=== PATIENT | male | born 2000 | race Caucasian/White ===

== ENCOUNTER 2020-06-20 21:24 | Emergency (ER) | payer BC ==
[2020-06-20] MEDS ORDERED: Lidocaine 1% 20 ML MDV INFILT ONE (21:25)
--- NOTE | 2020-06-20 23:19 | EDM.PDOC ---
ED HPI GENERAL MEDICAL PROBLEM - General Chief Complaint: Laceration Stated Complaint: CUT FINGER Time Seen by Provider: 06/20/20 22:30 Source of Information: Reports: Patient History Limitations: Reports: No Limitations - History of Present Illness INITIAL COMMENTS - FREE TEXT/NARRATIVE: cut right 5th finger while washes glass plate. has laceration to the lateral part of the 5th finger , moderate amount of bleeding noted Onset: Today Onset Date: 06/20/20 Duration: Getting Worse Location: Reports: Upper Extremity, Right Quality: Reports: Burning Severity: Mild Improves with: Reports: None Worsens with: Reports: None Associated Symptoms: Reports: No Other Symptoms - Related Data Allergies Allergy/AdvReac Type Severity Reaction Status Date / Time No Known Allergies Allergy Verified 06/20/20 22:06 Home Meds: Home Meds NK [No Known Home Meds] 06/20/20 [History] Past Medical History - Past Health History Medical/Surgical History: Denies Medical/Surgical History Social & Family History - Family History Family Medical History: No Pertinent Family History - Tobacco Use Tobacco Use Status *Q: Unknown Ever Used Tobacco - Caffeine Use Caffeine Use: Reports: None - Recreational Drug Use Recreational Drug Use: No ED ROS GENERAL - Review of Systems Review Of Systems: Comprehensive ROS is negative, except as noted in HPI. ED EXAM, SKIN/RASH Exam: See Below Exam Limited By: No Limitations General Appearance: Alert, WD/WN, No Apparent Distress Ears: Normal External Exam Nose: Normal Inspection Throat/Mouth: Normal Inspection, Normal Oropharynx Respiratory/Chest: No Respiratory Distress Back Exam: Normal Inspection, Full Range of Motion Extremities: Other (right 5th finger with c shaped laceration abotu 2 cm long , ragged with a flap , clean) ED SKIN PROCEDURES - Laceration/Wound Repair Right Upper Lateral Distal Digit - 5th (Baby) Appearance: Superficial, Irregular, Clean Distal NVT: Neuro & Vascular Intact Anesthetic Type: Digital Local Anesthesia - Lidocaine (Xylocaine): 1% Plain Local Anesthetic Volume: 5cc Skin Prep: Chlorhexidine (Hibiciens) Saline Irrigation (cc's): 5 Exploration/Debridement/Repair: Wound Explored Closed with: Sutures Lac/Wound length In cm: 2 Suture Size: 5-0 # of Sutures: 5 Suture Type: Simple, Other (ethilon) Sterile Dressing Applied: Nurse Tetanus Status Addressed: Yes Complications: No Complication Description: none Course - Vital Signs Last Recorded V/S: Last Vital Signs Temp 36.9 C 06/20/20 22:07 Pulse 74 06/20/20 22:07 Resp 16 06/20/20 22:07 BP 123/82 06/20/20 22:07 Pulse Ox 100 06/20/20 22:07 - Orders/Labs/Meds Meds: Medications Discontinued Medications Generic Name Dose Route Start Last Admin Trade Name Skip PRN Reason Stop Dose Admin Lidocaine HCl 5 ml 06/20/20 21:25 Xylocaine 1% INFILT 06/20/20 21:26 .STK-MED ONE Departure - Departure Time of Disposition: 23:42 Disposition: Home, Self-Care 01 Condition: Good Clinical Impression: Laceration of finger of right hand - Discharge Information *PRESCRIPTION DRUG MONITORING PROGRAM REVIEWED*: Not Applicable *COPY OF PRESCRIPTION DRUG MONITORING REPORT IN PATIENT LINDA: Not Applicable Instructions: Sutured Wound Care, Sutures, [place], or Adhesive Wound Closure, [id number] Referrals: PCP,None [Primary Care Provider] - Forms: ED Department Discharge Additional Instructions: 1) keep wound clean and dry , avoid getting it wet Ok to use a dab of antibiotic ointment on the wound 2) change wound dressing after 48 hrs , then daily 3) Suture removal in one week Sepsis Event Note (ED) - Evaluation Sepsis Screening Result: No Definite Risk
== END 2020-06-20 23:34 | disposition home or self-care (01) ==
LOC: FB.ED 21:24
DX: S61.216A Laceration without foreign body of right little finger without damage to nail, initial encounter (principal); W25.XXXA Contact with sharp glass, initial encounter; Y93.G1 Activity, food preparation and clean up
CPT/HCPCS: 12001; 99282-25; J2001